=== PATIENT | female | born 1945 | race African-American/Black ===

== ENCOUNTER 2020-08-14 13:53 | Inpatient (IN) | payer OTHER, BC ==
[~2020-08-14] VITALS: Ht 160 cm; Wt 82.6 kg
[2020-08-14] VITALS (14 sets, daily range): BP systolic 140–178; BP diastolic 48–72
[2020-08-14] MEDS ORDERED: CARVEDILOL25 MG PO (15:03)
[2020-08-14] MEDS ORDERED: LOKELMA5 GM PO (15:03)
[2020-08-14] MEDS ORDERED: LASIX 80 MG TAB80 MG PO (15:04)
[2020-08-14] MEDS ORDERED: HYDRALAZINE 2525 M1 PO (15:04)
[2020-08-14] MEDS ORDERED: SODIUM BICARBO650 M3 PO (15:06)
[2020-08-14 15:07] LABS: BASOPHILS 0.3 % (0.0-2.0); EOSINOPHILS 0.4 % (0.0-3.0); MCH 28.7 pg (26.0-34.0); MCHC 32.1 g/dL (28.0-37.0); MCV 89.3 fL (80.0-100.0); PLATELET COUNT 202 thou/uL (150-400); POLYS 82.3 % (36.0-66.0); RDW 17.7 % (10.5-14.5); WBC 7.3 thou/uL (4.0-11.0)
[2020-08-14] MEDS ORDERED: ELIQUIS5 MG PO (15:07)
[2020-08-14] MEDS ORDERED: CALCITRIOL0.25 MCG PO (15:09)
[2020-08-14 15:12] LABS: ANION GAP 16 mmol/L (7-16); BUN 104 mg/dL (7-18); CALCIUM 7.1 mg/dL (8.5-10.1); CHLORIDE 111 mmol/L (98-107); CO2 15 mmol/L (21-32); CREATININE 5.4 mg/dL (0.6-1.0); GLUCOSE 126 mg/dL (74-106); HEMATOCRIT 14.2 % (37.0-47.0); HEMOGLOBIN 4.6 gm/dL (12.0-15.0); SODIUM 142 mmol/L (136-145)
[2020-08-14 15:22] LABS: ALBUMIN 2.9 g/dL (3.4-5.0); SGOT 15 U/L (15-37); SGPT 32 U/L (30-65); TOTAL BILIRUBIN 0.2 mg/dL (0.2-1.0); TOTAL PROTEIN 6.2 g/dL (6.4-8.2); TROPONIN-I <0.06 ng/mL (<0.06)
--- NOTE | 2020-08-14 17:32 | NUR ---
A RIGHT IJ CENTRAL LINE WAS PLACED PER HOSPITAL POLICY AFTER A BEDSIDE TIMEOUT WAS COMPLETED. THE RIGHT JUGULAR WAS WIDLEY PATENT. A #6F TRIPLE LUMEN CENTRAL LINE WAS ADVANCED WITHOUT DIFFICULTY TO 7 CM EXTERNAL. A STAT CHEST XRAY CONFIRMED LINE IN APPROPRIATE POSITION FOR USE
[2020-08-14 18:05] LABS: URINE BILIRUBIN NEGATIVE (Negative); URINE BLOOD TRACE (Negative); URINE CLARITY CLEAR; URINE COLOR YELLOW; URINE GLUCOSE-RANDOM* NEGATIVE (Negative); URINE KETONES NEGATIVE (Negative); URINE LEUKOCYTES-REFLEX NEGATIVE (Negative); URINE NITRITE-REFLEX NEGATIVE (Negative); URINE PROTEIN (DIPSTICK) 2+ (Negative); URINE UROBILINOGEN 0.2 E.U./dl (0.2-1.0)
[2020-08-14 18:14] LABS: FOLIC ACID 6.3 ng/mL (8.6-58.9)
[2020-08-14 18:24] LABS: % SATURATION 19 % (20-39); IRON 51 ug/dL (50-170); TIBC 271 ug/dL (250-450)
--- NOTE | 2020-08-14 22:26 | NUR ---
1904 - PT ARRIVED FROM ER VIA CART. PT TRANSFERED TO ICU BED, CONNECTED TO MONITORS, ASSESSED PER ICU PROTOCOL. PRBC AND PROTONIX INFUSING FROM ER. DAUGHTER (KIKI) AT BEDSIDE. PT A&OX4, VERY PLEASANT BUT DROWSY. NO C/O PAIN OR N/V. 2022 - NEPHROLOGY CONSULTED. DR. BONILLA CALLED BACK. ORDERS OBTAINED TO INSERT MIGUEL CATH FOR ACCURATE I&O'S AND RENAL PANEL ORDERED FOR AM. 2029 - MANAGER TALENT ACQUISITION SENAIT CALLED REGAURDING BP 177/63. NO ORDERED RECEIVED. 2199 - PT SLEEPING. SECOND UNIT OF BLOOD STARTED PER ORDERS. WILL RECHECK H&H 1 HOUR POST INFUSION.
[2020-08-15] VITALS (17 sets, daily range): BP systolic 161–190; BP diastolic 62–87
[2020-08-15 01:40] LABS: HEMOGLOBIN 6.3 gm/dL (12.0-15.0)
[2020-08-15 01:41] LABS: HEMATOCRIT 19.3 % (37.0-47.0)
[2020-08-15 06:11] LABS: ABSOLUTE NEUTROPHILS 7.7 thou/uL (1.4-8.2); BASOPHILS 0.2 % (0.0-2.0); EOSINOPHILS 0.7 % (0.0-3.0); HEMATOCRIT 22.7 % (37.0-47.0); HEMOGLOBIN 7.8 gm/dL (12.0-15.0); LYMPHOCYTES 6.9 % (24.0-44.0); MCH 30.4 pg (26.0-34.0); MCHC 34.2 g/dL (28.0-37.0); MCV 88.8 fL (80.0-100.0); MONOCYTES 5.4 % (1.0-8.0); PLATELET COUNT 183 thou/uL (150-400); POLYS 86.8 % (36.0-66.0); RBC 2.55 mil/uL (4.20-5.00); RDW 15.6 % (10.5-14.5); WBC 8.9 thou/uL (4.0-11.0)
[2020-08-15 06:20] LABS: ALBUMIN 2.6 g/dL (3.4-5.0); CALCIUM 6.8 mg/dL (8.5-10.1); CREATININE 5.2 mg/dL (0.6-1.0); POTASSIUM 4.8 mmol/L (3.5-5.1)
--- NOTE | 2020-08-15 08:18 | EKG ---
[address] [address] ELECTROCARDIOGRAM REPORT Name: RUSS CRYSTAL Room #: 251- ADM IN M.R.#: [id number] Admission: 08/14/20 Attend Phys: Selwyn John MD Discharge: Date of : 47 Report #: [id number] [facility] ED Test Date: 2020-08-14 Test Time: 13:58:06 Pat Name: RUSS CRYSTAL Department: Room: [facility] Gender: F Aoc Aadc Operations Staff Officer: [place] : 1945 Requested By: Selwyn John Order Number: [id number] MD: Kervin Vargas Measurements Intervals [place] Rate: 68 P: -6 MA: 190 QRS: -35 QRSD: 116 T: 62 QT: 427 QTc: 455 Interpretive Statements Sinus rhythm Nonspecific intraventricular conduction delay Compared to ECG 07/28/2005 15:04:50 Left anterior fascicular block no longer present Electronically Signed On 08-15-2020 8:18:02 CDT by Kervin Vargas [email or web address] <ELECTRONICALLY SIGNED> By: Kervin Vargas MD, [facility] 08/15/20 0818 1358 1358 Kervin Vargas MD, [facility] /EPI
--- NOTE | 2020-08-15 09:00 | NUR ---
discussed during am rounds. low hgb had units of blood. gi consulted possible egd. possible moving out of icu today. unable to visit with her rt she up having breakfast. will cont following as needed for dc needs.
--- NOTE | 2020-08-15 11:24 | NUR ---
PT ORIENTED TO ROOM AND UNIT, BED LOW AND LOCKED, SIDE RAILS UPX3, CALL LIGHT IN REACH, TELE APPLIED. WILL CONTINUE TO ASSESS.
--- NOTE | 2020-08-15 12:01 | NUR ---
PT HYPERTENSIVE SYSTOLIC 180'S.DR. LOPEZ AWARE OF PATIENT'S BLOOD PRESSURE.NO ORDERS GIVEN AT 0823 AM. PT AGAIN HYPERTENSIVE TO SYSTOLIC 200'S. NOTIFIED. TOLD THIS RN THAT ORDERS WILL BE PUT IN. PT TRANSFERED TO CCU ROOM 210. REPORT GIVEN TO NAVIN BERG. PT HAD BOWEL MOVEMENT X2 TODAY. STOOL IS BLACK IN COLOR. PT ALERT AND ORIENTED X4. STANDBY ASSIST X1 TO BEDSIDE COMMODE. FAMILY CALLED TO NOTIFFY ABOUT PT TRANSFER BUT NO RESPONSE RECEIVED. MEDICAL RECORDS CALLED TO GET PT RECORDS FROM [facility].NAVIN BERG WAS NOTIFIED THAT THE UNIT SECETARY NEEDS TO CALL [facility] TO GET RECORDS ON THIS PATIENT.
--- NOTE | 2020-08-15 15:33 | NUR ---
PT UP IN CHAIR.
--- NOTE | 2020-08-15 17:10 | NUR ---
PT WILL BE NPO AFTER MIDNIGHT FOR EGD IN AM. PT TOLERATING CLEAR LIQUID WELL. WILL CONTINUE TO ASSESS.
[2020-08-15 20:06] LABS: IgA 43 mg/dL (64-422); IgG 1009 mg/dL (586-1602); IgM 6 mg/dL (26-217)
[2020-08-16] VITALS (8 sets, daily range): BP systolic 164–198; BP diastolic 65–87
--- NOTE | 2020-08-16 03:29 | NUR ---
PT A/OX3,FOLLOWS COMMANDS APPROPRIATELY.PT HYPERTENSIVE THIS SHIFT WITH SBP RANGING FROM 180-220,SCHEDULED HYDRALAZINE GIVEN W/O BP IMPROVEMENT.NATIONAL BUSINESS DIRECTOR NOTIFIED N/OS GIVEN OF LOPRESSOR WITH MINIMAL B/P IMPROVEMENT.PT C/O HEADACHES AND SOA WELL,O2 SAT >98% ON RA.TYLENOL GIVEN TO CONTROL B/P,SOA IMPROVED WITH IMPROVED B/P.NO ACTIVE BLEEDING NOTED.PT KEPT NPO FOR PLANNED EGD TODAY.
[2020-08-16 05:22] LABS: HEMATOCRIT 21.9 % (37.0-47.0); HEMOGLOBIN 7.4 gm/dL (12.0-15.0); MCH 29.9 pg (26.0-34.0); MCHC 33.7 g/dL (28.0-37.0); MCV 88.8 fL (80.0-100.0); RBC 2.47 mil/uL (4.20-5.00); RDW 16.3 % (10.5-14.5); WBC 9.2 thou/uL (4.0-11.0)
[2020-08-16 06:01] LABS: ALBUMIN 2.5 g/dL (3.4-5.0); CALCIUM 7.3 mg/dL (8.5-10.1); CREATININE 5.1 mg/dL (0.6-1.0); PHOSPHORUS 4.2 mg/dL (2.5-4.9); POTASSIUM 4.8 mmol/L (3.5-5.1)
[2020-08-16 14:07] LABS: IFEU COMMENT Note: (())
[2020-08-16 14:07] LABS: GLOBULIN TOTAL 2.4 g/dL (2.2-3.9); M-SPIKE 0.8 g/dL (Not Observed)
--- NOTE | 2020-08-16 15:51 | NUR ---
BPCI letter & preferred provider network list provided to patient, lives in home setting
--- NOTE | 2020-08-16 17:06 | NUR ---
PT CARE ASSUMED AT 0700. ASSESSMENTS CHARTED. MEDICATIONS CHARTED. RIJ 3L PICC. SINUS RHYTHM. BM TODAY. ACHS; CARB CONTROL. EGD; ACTIVE BLEEDING IN DUODENUM, EPINEPHRINE INJECTED THEN CAUTERIZED. BILAT POLYPS ON VOCAL CORDS; DR RECOMMEDED OUTPT REMOVAL. BLOOD THINNERS ON HOLD.
[2020-08-16 20:06] LABS: URINE PROTEIN (MG/DL) 109.6 mg/dL (Not Estab.)
[2020-08-17 03:46] VITALS: BP 194/85
--- NOTE | 2020-08-17 04:18 | NUR ---
PT IS ALERT AND ORIENTED X4. LUNGS ARE CLEAR. FAMILY PRESENT THIS EVENING ASKING QUESTIONS IN REGARDS TO EGD RESULTS. INFORMATION PROVIDED PER NURSING OF QUESTIONS TO FAMILY. PT DOES HAVE HIGH BLOOD PRESURE DESPITE MEDS AND EVEN A DOSE OF LOPRESSOR IV NOTIFIED FROM SIZE STAMPER. WILL CONINUE TO MONTIOR AND ASSESS PER NURSING. PT HAS A SLIGHT HEADACHE. MEDS GIVEN FOR THAT. CALL LIGHT WITHIN REACH IF NEEDED.
[2020-08-17 08:00] VITALS: BP 200/88
[2020-08-17 08:43] LABS: HEMOGLOBIN 6.9 gm/dL (12.0-15.0); WBC 7.1 thou/uL (4.0-11.0)
[2020-08-17 08:45] LABS: HEMATOCRIT 20.6 % (37.0-47.0); MCH 29.6 pg (26.0-34.0); MCHC 33.4 g/dL (28.0-37.0); MCV 88.8 fL (80.0-100.0); RBC 2.32 mil/uL (4.20-5.00); RDW 16.8 % (10.5-14.5)
[2020-08-17 08:56] LABS: ALBUMIN 2.6 g/dL (3.4-5.0); CALCIUM 7.7 mg/dL (8.5-10.1); CREATININE 5.7 mg/dL (0.6-1.0); POTASSIUM 4.9 mmol/L (3.5-5.1)
[2020-08-17 09:00] LABS: APTT 30.3 Seconds (24.5-32.8); INR 1.1; PROTIME 11.9 Seconds (10.5-12.1)
[2020-08-17 12:11] VITALS: BP 160/73
[2020-08-17 16:00] VITALS: BP 174/73
--- NOTE | 2020-08-17 17:44 | NUR ---
VASCULAR ACCESS NURSE ROUNDING- THIS PATEINT IS NO LONGER ON IV MEDS- SUGGEST REMOVAL OF CENTRAL LINE AND PIV PLACEMENT TO AVOID RISK OF A BLOOD STREAM INFECTION
[2020-08-17 19:31] VITALS: BP 154/72
[2020-08-18 03:56] VITALS: BP 152/60
--- NOTE | 2020-08-18 05:19 | NUR ---
PT LYING IN BED. TYLENOL PROVIDING HEADACHE RELIEF. DENIES NAUSEA. RESTING COMFORTABLY. NO NEEDS VOICED. CALL LIGHT WITHIN REACH. FREQUENT OBSERVATION.
[2020-08-18 06:41] LABS: RBC 2.16 mil/uL (4.20-5.00)
[2020-08-18 06:42] LABS: MCH 29.1 pg (26.0-34.0); MCHC 32.5 g/dL (28.0-37.0); MCV 89.7 fL (80.0-100.0); RDW 16.7 % (10.5-14.5); WBC 5.7 thou/uL (4.0-11.0)
[2020-08-18 06:48] LABS: HEMATOCRIT 19.4 % (37.0-47.0); HEMOGLOBIN 6.3 gm/dL (12.0-15.0)
[2020-08-18 06:56] LABS: ALBUMIN 2.4 g/dL (3.4-5.0); CALCIUM 7.5 mg/dL (8.5-10.1); CREATININE 5.8 mg/dL (0.6-1.0); PHOSPHORUS 5.7 mg/dL (2.6-4.7); POTASSIUM 5.1 mmol/L (3.5-5.1)
[2020-08-18 08:00] VITALS: BP 160/61
[2020-08-18 12:00] VITALS: BP 140/66; BP 150/77
[2020-08-18 12:24] VITALS: BP 171/66
--- NOTE | 2020-08-18 12:57 | NUR ---
VASCULAR ACCESS NURSE ROUNDING, SUGGEST PLACEMENT OF A PERIPHERAL IV AND REMOVAL OF CENTRAL LINE TO DECREASE RISK OF A BLOOD STREAM INFECTION
[2020-08-18 16:00] VITALS: BP 145/59
[2020-08-18 20:30] VITALS: BP 146/58
[2020-08-19] VITALS (7 sets, daily range): BP systolic 127–149; BP diastolic 50–61
--- NOTE | 2020-08-19 07:20 | NUR ---
PATIENTS CARES WERE ASSUMED AT SHIFT CHANGE. PATIENT WAS ASSESSED AND MEDS WERE PASSED. PATIENT WAS UP IN THE CHAIR FOR A WHILE TO WATCH TV. PATIENT DID SLEEP APPROX EIGHT HOURS THIS SHIFT. ROUNDS WERE MADE. THE BED IS IN A LOW AND LOCKED POSITION.
[2020-08-19 11:07] LABS: KAPPA FREE LIGHT CHAINS 311.6 mg/L (3.3-19.4); KAPPA/LAMBDA RATIO 11.98 (0.26-1.65)
[2020-08-19 13:20] LABS: HEMATOCRIT 24.3 % (37.0-47.0); HEMOGLOBIN 8.1 gm/dL (12.0-15.0)
[2020-08-19] MEDS ORDERED: NORVASC5 MG PO ×2 (14:00→14:28)
[2020-08-19] MEDS ORDERED: PROTONIX40 M4 PO ×2 (14:00→14:28)
--- NOTE | 2020-08-19 14:09 | NUR ---
CM SPK WITH PT AND HER DTR, KIKI ([phone]). PT LIVES ALONE IN [place] W/ELEVATOR. AND WAS INDEPENDENT WITH ADLS PRIOR TO ADMISSION. PT WILL RTRN HOME WITH HER DTR WITH [facility] PT DRT, KIKI STATED SHE WORKS WITH [employer]. PT HAS WALKER, W/C AND CANE. PT IS SWITCHING FORM ROQUE TO [facility] PROVIDER. KIKI ADDRESS: [address] [place] [phone]. CM PROVIDED THEM WITH A LIST OF PROVIDERS. CM TO ASSIST W/HH NEEDS.
--- NOTE | 2020-08-19 15:04 | P ---
[facility] [address] PROCEDURE REPORT Name: RUSS CRYSTAL Room #: 210-P ADM IN M.R.#: [id number] Admission: 08/14/20 Attend Phys: Selwyn John MD Discharge: Date of : 47 Report #: [id number] THIS REPORT FOR: cc: FAM - Family physician unknown FAM - Family physician unknown Srinivas Hodge MD ~ DOC #: [id number] cc: Selwyn John MD, DO Srinivas Hensley MD DATE OF SERVICE: 08/16/2020 PROCEDURE PERFORMED: Upper endoscopy with bleeding control. HISTORY OF PRESENT ILLNESS: The patient is a 74-year-old female with recent melanotic stools, hemoglobin of 4.6. Last hemoglobin was 7.3. Dr. Matthieu Lin, my partner has been following the patient inpatient and was doing an upper endoscopy on the patient this morning for above symptoms. During the EGD, he noticed bleeding near what appears to be the major papilla in the second portion of the duodenum. He asked for my assistance at this point, the patient was already asleep with propofol. DESCRIPTION OF PROCEDURE: I used an ERCP side-viewing Olympus scope and advanced the scope down the patient's mouth, through the stomach, into the second portion of the duodenum. The major papilla was somewhat full in general and somewhat enlarged, but no obvious mass lesions were seen. There was obvious active bleeding, just to the edge of the bile duct opening. Throughout this time, bile was noted exiting the bile duct. It does not appear that the blood was coming from the bile duct itself. I then proceeded with injecting the area with 1 mL of epinephrine. This slowed the bleeding significantly. At this point, I was able to cauterize the edge of the major papilla and no further bleeding was noted. The scope was then brought out and a regular upper endoscope was then inserted into the stomach. Two gastric nonbleeding AVMs were also noted and cauterized both of these which were 3-4 mm in size with a 7-Icelandic bipolar cautery. No bleeding after cauterization. At this point, the scope was then withdrawn. On withdrawal, however, I did notice a mass lesion on her left both vocal cord. Multiple pictures were obtained. The scope was then withdrawn and the procedure terminated. The patient tolerated the procedure well. IMPRESSION: 1. Active bleeding seen at the major papilla, not from the bile duct, but near the opening. This was treated using a side-viewing scope today with epinephrine injection and cautery. No further bleeding noted after treatment. 2. 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 3. 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 Dr. Roberts from ENT was [address] [address] PROCEDURE REPORT Name: RUSS CRYSTAL Room #: 210-P [facility] IN M.R.#: [id number] Admission: 08/14/20 Attend Phys: Selwyn John MD Discharge: Date of : 47 Report #: [id number] consulted. Thank you for allowing me to participate in her care. Srinivas Hodge MD [facility]/MYLA <ELECTRONICALLY SIGNED> By: Srinivas Hodge MD 08/19/20 1504 [id number] [id number] Srinivas Hodge MD /
--- NOTE | 2020-08-19 17:54 | NUR ---
I DISCUSSED WITH DR. HOWELL AND GI OPERATING SYSTEMS SPECIALIST REGARDING ELIQUIS AT DISCHARGE. PLAN FOR PATIENT TO RESUME ELIQUIS ONE WEEK FROM TODAY (08/26). GI WILL CONTACT PATIENT AFTER DISCHARGE TO SCHEDULE FOLLOW UP APPOINTMENT AND RE-EVALUATE ELIQUIS FURTHER. PATIENT AND DAUGHTER WERE PROIVDED WITH INSTRUCTIONS. BOTH VERBALIZED UNDERSTANDING OF INSTRUCTIONS.
[2020-08-20 12:07] LABS: GLOMERULR BASEM MEMBRN AB 2 units (0-20)
== END 2020-08-19 18:28 | disposition home health service (06) | DRG 377 ==
LOC: ER 13:53 → EROBS 17:17 → ICU 17:17 → 2N 08-15 11:00
PROVIDERS: Emergency Medicine; Hospitalist; Internal Medicine Gastroenterology; Internal Medicine Nephrology; Nurse Practitioner; ADMIT Internal Medicine; ATTEND Internal Medicine
PROC: 30233N1 Transfusion of Nonautologous Red Blood Cells into Peripheral Vein, Percutaneous Approach (ICD-10-PCS; principal; 2020-08-14)
PROC: 0W3P8ZZ Control Bleeding in Gastrointestinal Tract, Via Natural or Artificial Opening Endoscopic (ICD-10-PCS; 2020-08-16)
DX: K31.811 Angiodysplasia of stomach and duodenum with bleeding (principal); N18.6 End stage renal disease; D62 Acute posthemorrhagic anemia; N17.9 Acute kidney failure, unspecified; I12.0 Hypertensive chronic kidney disease with stage 5 chronic kidney disease or end stage renal disease; I48.91 Unspecified atrial fibrillation; E78.5 Hyperlipidemia, unspecified; E86.0 Dehydration; E11.22 Type 2 diabetes mellitus with diabetic chronic kidney disease; E11.21 Type 2 diabetes mellitus with diabetic nephropathy; J38.1 Polyp of vocal cord and larynx; E83.39 Other disorders of phosphorus metabolism; Z20.822 Contact with and (suspected) exposure to COVID-19; Z90.710 Acquired absence of both cervix and uterus; Z79.01 Long term (current) use of anticoagulants; Z90.49 Acquired absence of other specified parts of digestive tract; Z98.891 History of uterine scar from previous surgery; Z79.899 Other long term (current) drug therapy; Z88.5 Allergy status to narcotic agent; Z88.0 Allergy status to penicillin; Z87.891 Personal history of nicotine dependence
CPT/HCPCS: 10078; 10081; 50455; 62110; 62900; 70005; 85076

== ENCOUNTER 2021-03-25 08:57 | Inpatient (IN) | payer OTHER, BC ==
[~2021-03-25] VITALS: Ht 160 cm; Wt 73.0 kg
[~2021-03-25 08:57] MED LIST: CALCITRIOL0.25 MCG PO; CARVEDILOL25 MG PO; ELIQUIS5 MG PO; HYDRALAZINE 2525 M1 PO; LASIX 80 MG TAB80 MG PO; LOKELMA5 GM PO; NORVASC5 MG PO; PROTONIX40 M4 PO; SODIUM BICARBO650 M3 PO
[2021-03-25 09:23] VITALS: BP 180/90
--- NOTE | 2021-03-25 10:54 | EKG ---
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: joan : 1945 Requested By: Omero Walton Order Number: [id number] MD: Renny Chandler Measurements Intervals [place] Rate: 103 P: -54 MO: 135 QRS: -55 QRSD: 110 T: 40 QT: 393 QTc: 515 Interpretive Statements Sinus tachycardia/PAFIB Ventricular premature complex Left anterior fascicular block Abnormal R-wave progression, late transition Compared to ECG 08/14/2020 13:58:06 Ventricular premature complex(es) now present Left anterior fascicular block now present Sinus rhythm no longer present Intraventricular conduction delay no longer present Electronically Signed On 03-25-2021 10:54:22 DOCUMENT CONTROLLER by Renny Chandler [email or web address] <ELECTRONICALLY SIGNED> By: Renny Chandler MD, FACC 03/25/21 1054 0909 0909 Renny Chandler MD, [facility] /EPI
[2021-03-25 11:36] LABS: ABSOLUTE NEUTROPHILS 2.7 thou/uL (1.4-8.2); BASOPHILS 0.5 % (0.0-2.0); EOSINOPHILS 1.5 % (0.0-3.0); HEMATOCRIT 28.5 % (37.0-47.0); HEMOGLOBIN 9.1 gm/dL (12.0-15.0); LYMPHOCYTES 11.9 % (24.0-44.0); MCH 27.2 pg (26.0-34.0); MCHC 32.1 g/dL (28.0-37.0); MCV 84.6 fL (80.0-100.0); MONOCYTES 11.5 % (1.0-8.0); PLATELET COUNT 165 thou/uL (150-400); POLYS 74.6 % (36.0-66.0); RBC 3.37 mil/uL (4.20-5.00); RDW 16.1 % (10.5-14.5); WBC 3.6 thou/uL (4.0-11.0)
[2021-03-25 11:58] LABS: ALBUMIN 3.1 g/dL (3.4-5.0); CREATININE 9.3 mg/dL (0.6-1.0); POTASSIUM 3.9 mmol/L (3.5-5.1); TOTAL BILIRUBIN 0.2 mg/dL (0.2-1.0); TOTAL PROTEIN 7.4 g/dL (6.4-8.2)
[2021-03-25 12:01] LABS: CALCIUM 5.3 mg/dL (8.5-10.1)
[2021-03-25 14:31] LABS: PHOSPHORUS 8.4 mg/dL (2.5-4.9)
[2021-03-25 19:37] VITALS: BP 200/103
[2021-03-26 05:00] VITALS: BP 120/61
[2021-03-26 06:06] LABS: BASOPHILS 0.1 % (0.0-2.0); HEMATOCRIT 25.1 % (37.0-47.0); HEMOGLOBIN 8.1 gm/dL (12.0-15.0); LYMPHOCYTES 11.2 % (24.0-44.0); MCH 27.4 pg (26.0-34.0); MCHC 32.3 g/dL (28.0-37.0); MCV 84.8 fL (80.0-100.0); MONOCYTES 3.7 % (1.0-8.0); PLATELET COUNT 162 thou/uL (150-400); RBC 2.96 mil/uL (4.20-5.00); RDW 16.3 % (10.5-14.5); WBC 3.6 thou/uL (4.0-11.0)
[2021-03-26 06:38] LABS: ALBUMIN 2.7 g/dL (3.4-5.0); CREATININE 9.3 mg/dL (0.6-1.0); MAGNESIUM 1.3 mg/dL (1.8-2.4); PHOSPHORUS 9.2 mg/dL (2.5-4.9)
[2021-03-26 06:40] LABS: CALCIUM 5.7 mg/dL (8.5-10.1)
--- NOTE | 2021-03-26 07:40 | NUR ---
ASSUME CARE 1900. PT/VITALS STABLE. DENIES ANY PAIN. MODERATE TOLERANCE TO ACTIVITY. A/O X 4. ROOM AIR WITH ADEQUATE SATS. MILD SOB WITH EXERTION. ASSESSMENT CHARTED. PROGRESSING WELL WITH POC. PLAN IS TO CONTINUE TO MONITOR AND MANAGE KIDNEY AND RESP FUNCTION. WILL CONTINUE TO FOLLOW WITH POC
[2021-03-26 09:30] LABS: INR 1.1; PROTIME 11.9 Seconds (10.5-12.1)
[2021-03-26 13:03] VITALS: BP 122/55
[2021-03-26 16:25] VITALS: BP 89/37
--- NOTE | 2021-03-26 16:40 | NUR ---
PT ADMITTED REALTED TO COVID +, ACUTE ON CHRONIC RENAL FAILURE. CM REVIEWED CHART AND SPOKE WITH CARE TEAM. CM CALLED PT'S ROOM MULTIPAL TIMES THIS DAY WITH NO RESPONSE. CM CALLED PT'S DTR KIKI . 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 SHE INDICATED THAT PT HAS A CANE AND A 4WW FOR HOME USE. SHE INDICATED THAT PT HAD BATHED HERSELF BUT THAT SHE NEEDED ASSIST WITH CLEANING AND IADLS. DTR INDICATED THAT HER SISTER AND NIECE HAD OFTEN ASSISTED PT. CM INDICATED THAT PT HAVING A TUNNELED DIALYSIS CATHETER PLACE AND WOULD BE INITIATED ON HD HERE TOMORROW. CM INDICATED THAT CARE TEAM HAD INDICATED THAT PT WOULD NEED TO BE ESTABLISHED WITH OP HD IN THE COMMUNITY. DTR KIKI INDICATED THAT PLAN UPON DC THIS TIME WOULD BE FOR PT TO GOT TO HER HOME PERMANTLY. SHE RESIDES AT [address] [place] [address]. SHE INDICATED THAT HER FATHER HAD GONE TO [facility] AND SHE WAS INTERESTED IN SEEING IF HER MOTHER COULD BE ESTABLISHED THERE. CM TO FAX INFO TO [facility] TO SEE IF THEY MIGHT BE ABLE TO ACCEPT. DTR INDICTED SHE MIGHT PREFER MWF EARLY SHIFT CHIAR TIME. CM FOLLOWING REGARDING DC PLANNING NEEDS.
--- NOTE | 2021-03-26 17:59 | NUR ---
PATIENT SLOWLY PROGRESSING TOWARDS THE PLAN OF CARE. DR. OLIVARES NOTIFIED OF PATIENT'S DROP IN BP. ORDERS RECEIVED AND IMPLEMENTED.
[2021-03-26 18:53] VITALS: BP 116/43
--- NOTE | 2021-03-26 20:54 | HC ---
[facility] [place] [address] CONSULTATION Name: RUSS CRYSTAL Room #: 450-P ADM IN M.R.#: [id number] Admission: 03/25/21 Attend Phys: Jaylene Estrada MD Discharge: Date of : 47 Report #: [id number] THIS REPORT FOR: cc: FAM - Family physician unknown FAM - Family physician unknown Vinay Rosas MD ~ DATE OF SERVICE: 03/25/2021 INFECTIOUS DISEASE CONSULTATION REASON FOR CONSULTATION: I was asked to evaluate concerning COVID-19 infection. HISTORY OF PRESENT ILLNESS: The patient is a 75-year-old, underlying history of hypertension, end-stage renal disease and atrial fibrillation, unvaccinated for COVID-19, presents with a 2-day history of nausea, vomiting, diarrhea, mild headache, anorexia, myalgias without fever, chills or sweats, loss of taste or smell. Also, with generalized weakness. No cough or sputum production. No chest pain or palpitations. No hemoptysis. No PND or orthopnea. She presented to the Emergency Room with a negative chest x-ray, COVID-19 positive, leukopenia. She has remained on room air with O2 saturation 99%. REVIEW OF SYSTEMS: 14-point was negative other than what has been described above. ALLERGIES: CODEINE, PENICILLIN. MEDICATIONS: As noted on her MAR. PAST MEDICAL HISTORY: Hypertension, back surgery, diabetes, laminectomy, cholecystectomy, hysterectomy, herniorrhaphy, , hypertension, end-stage renal disease, atrial fibrillation, GI bleed. FAMILY HISTORY: Negative for tuberculosis. SOCIAL HISTORY: Smoker of cigarettes. Past alcohol use. Lives alone, although was visiting her grandchildren before she got sick. PHYSICAL EXAMINATION: GENERAL: She was afebrile and hemodynamically stable. She was alert and cooperative and pleasant. No acute distress. SKIN: Without rash or decubitus. No palpable adenopathy. Mild obesity. HEENT: Eyes without scleral icterus. Mouth without mucositis. NECK: Supple. LUNGS: Clear. HEART: Regular, without murmur, gallop or rub. ABDOMEN: Soft, mild tenderness in the epigastric region. No hepatosplenomegaly [facility] [address] [place] [address] CONSULTATION Name: RUSS CRYSTAL Room #: 450-[facility] IN .R.#: [id number] Admission: 03/25/21 Attend Phys: Jaylene Estrada MD Discharge: Date of : 47 Report #: [id number] or mass. No CVA tenderness. GENITORECTAL: Examination not performed. EXTREMITIES: Without clubbing, cyanosis or edema. NEUROLOGIC: Cranial nerves intact. Strength in the upper or lower extremities was symmetric. PSYCHIATRIC: Mood without anxiety. LABORATORY DATA: Reviewed. MICROBIOLOGY: Reviewed. IMAGING: Chest x-ray reviewed. IMPRESSION: COVID-19 infection with gastroenteritis as her main presentation. Thus far, no evidence of pneumonia. She has end-stage renal disease, underlying hypertension, coronary artery disease and atrial fibrillation. Leukopenia, suspect related to her COVID-19 infection. Blood pressure is yet to be controlled. RECOMMENDATION: We will continue antiviral therapy with remdesivir. Home corticosteroids at this point. Control hypertension. Continue dialysis program as the patient will be on remdesivir. Follow serial laboratory studies including liver function tests. Follow up on COVID isolation unit. <ELECTRONICALLY SIGNED> By: Vinay Rosas MD 03/26/212053 13 [id number] Vinay Rosas MD /nt
[2021-03-27 04:06] LABS: GLYCOHEMOGLOBIN (HGB A1C) 5.6 % (4.8-5.6)
[2021-03-27 05:12] VITALS: BP 142/67
[2021-03-27 06:17] LABS: ALBUMIN 2.7 g/dL (3.4-5.0); ANION GAP 18 mmol/L (7-16); BUN 81 mg/dL (7-18); CHLORIDE 102 mmol/L (98-107); CO2 15 mmol/L (21-32); CREATININE 9.4 mg/dL (0.6-1.0); DIRECT BILIRUBIN < 0.1 mg/dL (<0.1-0.2); GLUCOSE 91 mg/dL (74-106); PHOSPHORUS 8.3 mg/dL (2.6-4.7); POTASSIUM 3.3 mmol/L (3.5-5.1); SGOT 20 U/L (15-37); SGPT 10 U/L (14-59); SODIUM 135 mmol/L (136-145); TOTAL BILIRUBIN 0.3 mg/dL (0.2-1.0); TOTAL PROTEIN 5.9 g/dL (6.4-8.2)
[2021-03-27 06:22] LABS: CALCIUM 5.4 mg/dL (8.5-10.1)
[2021-03-27 07:40] VITALS: BP 154/86
[2021-03-27 08:00] VITALS: BP 164/86
[2021-03-27 12:11] VITALS: BP 142/95
--- NOTE | 2021-03-27 14:42 | NUR ---
PT INITIATED ON FIRST TREAT OF HD THIS DAY. CM REACHED OUT TO ADMISSIONS AT [facility] AND THEY HAD GOTTEN DEMPGRAPHIC AND INITIALL CLINICAL CM HAD FAXED YESTERDAY. KAREN INDICATED IT WAS BEING REVIEW. SHE INDICATED THAT THEY WERE WANTING FOR A MEDICARE PART B APPLICATION TO BE INITIATED PT NOW HAD PART A ONLY AND A BLUE CROSS OUT OF AREA SECONDARY. CM WAS INFORMED THAT PT WOULD NEED TO SIGN UP FOR MEDICATE PART B. CM ATTEMPTED PC TO PT'S ROOM WITH NO ANSWER. CM CALLED AND EXPLAINED THAT ABOVE TO PT'S DTR KIKI. KIKI INDICATED SHE WOULD COME AND GET THE FORMS THIS DAY. CM LEFT THEM WITH SECURITY. KAREN INDICATED PT WOULD BE STARTED ON THEIR COVID SHIFT INITIALLY T,R,S SECOND SHIFT. CM NOTIFIED PT'S DTR OF THIS. PT ND OT ORDERED. CM FOLLOWING REGARDING DC PLANNING.
[2021-03-27 17:02] VITALS: BP 164/86
[2021-03-27 21:00] VITALS: BP 142/63
[2021-03-28 03:52] LABS: ALBUMIN 2.4 g/dL (3.4-5.0); ANION GAP 11 mmol/L (7-16); BUN 44 mg/dL (7-18); CHLORIDE 101 mmol/L (98-107); CO2 25 mmol/L (21-32); DIRECT BILIRUBIN < 0.1 mg/dL (<0.1-0.2); GLUCOSE 76 mg/dL (74-106); PHOSPHORUS 4.5 mg/dL (2.5-4.9); SGOT 19 U/L (15-37); SGPT 14 U/L (30-65); SODIUM 137 mmol/L (136-145); TOTAL BILIRUBIN 0.1 mg/dL (0.2-1.0); TOTAL PROTEIN 5.1 g/dL (6.4-8.2)
[2021-03-28 04:11] LABS: CREATININE 6.4 mg/dL (0.6-1.0)
[2021-03-28 04:12] LABS: CALCIUM 5.6 mg/dL (8.5-10.1)
--- NOTE | 2021-03-28 04:44 | NUR ---
ASSUMED CARE AT 1930 OF 03/27. PATIENT IS RECEIVED SLEEPING IN BED. A&OX4. VITAL SIGNS REMAIN STABLE, DENIES PAIN OR SHORTNESS OF BREATH. CRITICAL LAB VALUE OF CALCIUM BEIGN 5.6 RECEIVED THIS MORNING. AUCTION BLOCK CLERK PROVIDER HAS BEEN NOTIFED AND NO NEW ORDERS RECEIVED. ON COMING SHIFT WILL BE NOTIFIED. FALL PRECAUTIONS IN PLACE, CALL LIGHT WITHIN REACH. WILL CONTINUE TO MONITOR.
[2021-03-28 07:13] VITALS: BP 163/74
[2021-03-28 21:45] VITALS: BP 197/87
[2021-03-29 06:14] LABS: HEMATOCRIT 25.8 % (37.0-47.0); HEMOGLOBIN 8.3 gm/dL (12.0-15.0); MCHC 32.1 g/dL (28.0-37.0); MCV 84.3 fL (80.0-100.0); PLATELET COUNT 128 thou/uL (150-400); RBC 3.06 mil/uL (4.20-5.00); RDW 16.1 % (10.5-14.5); WBC 2.4 thou/uL (4.0-11.0)
[2021-03-29 06:49] LABS: ALBUMIN 2.4 g/dL (3.4-5.0); ANION GAP 12 mmol/L (7-16); BUN 26 mg/dL (7-18); CALCIUM 6.3 mg/dL (8.5-10.1); CHLORIDE 99 mmol/L (98-107); CO2 25 mmol/L (21-32); DIRECT BILIRUBIN < 0.1 mg/dL (<0.1-0.2); GLUCOSE 65 mg/dL (74-106); PHOSPHORUS 3.8 mg/dL (2.5-4.9); POTASSIUM 3.2 mmol/L (3.5-5.1); SGOT 22 U/L (15-37); SGPT 13 U/L (30-65); SODIUM 136 mmol/L (136-145); TOTAL BILIRUBIN 0.2 mg/dL (0.2-1.0); TOTAL PROTEIN 5.7 g/dL (6.4-8.2)
[2021-03-29 06:50] LABS: CREATININE 4.9 mg/dL (0.6-1.0)
[2021-03-29 07:27] VITALS: BP 157/82
[2021-03-29 11:27] LABS: ABSOLUTE NEUTROPHILS 1.6 thou/uL (1.4-8.2)
[2021-03-29 11:28] LABS: ANISOCYTOSIS 1+; POIKILOCYTOSIS SLIGHT
[2021-03-29 12:45] VITALS: BP 147/66
[2021-03-29 16:17] VITALS: BP 155/69
[2021-03-29 19:51] VITALS: BP 178/85
[2021-03-30 04:26] VITALS: BP 169/81
--- NOTE | 2021-03-30 04:26 | NUR ---
I AGREE WITH NURSE HURLEY ON THE ASSESSMENT OF THIS PT.
[2021-03-30 06:14] LABS: ABSOLUTE NEUTROPHILS 1.9 thou/uL (1.4-8.2); BASOPHILS 0.4 % (0.0-2.0); EOSINOPHILS 1.5 % (0.0-3.0); HEMATOCRIT 23.7 % (37.0-47.0); HEMOGLOBIN 7.7 gm/dL (12.0-15.0); LYMPHOCYTES 19.6 % (24.0-44.0); MCH 27.2 pg (26.0-34.0); MCHC 32.4 g/dL (28.0-37.0); MCV 83.9 fL (80.0-100.0); MONOCYTES 10.4 % (1.0-8.0); PLATELET COUNT 121 thou/uL (150-400); POLYS 68.1 % (36.0-66.0); RBC 2.83 mil/uL (4.20-5.00); RDW 15.7 % (10.5-14.5); WBC 2.8 thou/uL (4.0-11.0)
[2021-03-30 06:43] LABS: ALBUMIN 2.4 g/dL (3.4-5.0); PHOSPHORUS 4.2 mg/dL (2.5-4.9); POTASSIUM 3.1 mmol/L (3.5-5.1)
[2021-03-30 06:48] LABS: CREATININE 6.3 mg/dL (0.6-1.0)
[2021-03-30 06:50] LABS: CALCIUM 5.8 mg/dL (8.5-10.1)
[2021-03-30 14:27] VITALS: BP 169/81
[2021-03-30 17:06] VITALS: BP 175/93
--- NOTE | 2021-03-30 18:26 | NUR ---
Patient had no pain, axo x 4 walk to the bathroom to urinate 2 times. appetite is poor, but report start to get it back. call light within reach, will continous monitoring.
[2021-03-30 19:30] VITALS: BP 171/86
--- NOTE | 2021-03-31 03:56 | NUR ---
ASSUMED CARE OF PT AT 1900 BEDSIDE REPORT RECIEVED AND KOMAL ASSESSMENT COMPLETE. MEDS GIVEN PER MAY. PT DENIES ANY PAIN, REPORTS EXHAUSTION. R CHEST HD CATH CDI. REFILLED ICE WATER. UP X1 TO BATHROOM. HOURLY ROUNDING CONTINUING. CALL LIGHT IN REACH
[2021-03-31 05:00] VITALS: BP 180/75
[2021-03-31 06:52] LABS: ABSOLUTE NEUTROPHILS 2.3 thou/uL (1.4-8.2); BASOPHILS 0.4 % (0.0-2.0); HEMATOCRIT 23.5 % (37.0-47.0); HEMOGLOBIN 7.6 gm/dL (12.0-15.0); LYMPHOCYTES 16.3 % (24.0-44.0); MCH 26.8 pg (26.0-34.0); MCHC 32.4 g/dL (28.0-37.0); MCV 82.6 fL (80.0-100.0); MONOCYTES 8.6 % (1.0-8.0); PLATELET COUNT 136 thou/uL (150-400); POLYS 72.7 % (36.0-66.0); RBC 2.85 mil/uL (4.20-5.00); RDW 15.1 % (10.5-14.5); WBC 3.2 thou/uL (4.0-11.0)
[2021-03-31 07:07] LABS: ALBUMIN 2.4 g/dL (3.4-5.0); CREATININE 7.2 mg/dL (0.6-1.0); POTASSIUM 3.3 mmol/L (3.5-5.1)
[2021-03-31 07:10] LABS: CALCIUM 5.5 mg/dL (8.5-10.1)
[2021-03-31 07:24] VITALS: BP 172/98
--- NOTE | 2021-03-31 07:27 | NUR ---
CRITICAL RESULTS CALLED TO @3765 OF CALCIUM LEVELS;
[2021-03-31 11:37] VITALS: BP 181/105
[2021-03-31 13:23] VITALS: BP 181/105
--- NOTE | 2021-03-31 15:24 | NUR ---
CM FAXED FLOW SHEETS TO KAREN IN INTAKE AT [facility]. CM CONVEYED TO HOSPITALIST AND TO PT'S NURSE CHUNG THIS DAY THAT PT'S HEP PANEL (NEED TO ESTABLISH WITH OP HD UPON DC) IS STILL SHOWING PENDING IN THE COMPUTER. NURSE TO TAKE MEDICARE PART B APPLICATION THAT PT'S DTR RETURNED IN FOR PT TO SIGN. CM INDICATED THAT [facility] THAT THEY HAVE APPLICATION AND THAT IT WILL BE SUBMITTED. CM FOLLOWING REGARDING DC PLANNING.
[2021-03-31 15:42] VITALS: BP 178/92
--- NOTE | 2021-03-31 17:43 | NUR ---
RESUMMED CARE; PATIENT WAS IN BED WITH DIALYSIS GOING THIS MORNING; PATIENT HAD 1LI LIFTED; A&O*4; DENIED PAIN-N/V/D; HAS IV IN THE RIGHT HAND-S.L; RIGHT CHEST HD CATH IN PLACE FOR DIALYSIS-D/C/I; PATIENT ON TELLY RUNNING SA; HYPERTENSIVE THROUGHOUT THE DAY, PATIENT STATES "THATS NORMAL." MEDICATIONS GIVEN PER MAR; FALL PRECAUTIONS & ENHANCED PRECAUTIONS ARE IN PLACE; UP WITH STANDBY ASSIST TO AND FROM RESTROOM; NO BOWEL MOVEMENT NOTED TODAY, PATIENT HAS URINATED *3 POST DIALYSIS;
[2021-03-31 19:51] VITALS: BP 182/103
--- NOTE | 2021-04-01 03:37 | NUR ---
ASSUMED CARE OF PT AT 1914. REPORT RECIEVED. KOMAL ASSESSMENT COMPLETE. PT DENIES ANY PAIN AT THIS TIME. NOTIFIED SHASHANK COMMUNITY ENGAGEMENT REPRESENTATIVE OF INCREASED BP, NO NEW ORDERS AT THIS TIME. PT REPORTS EXHASTION. MEDS GIVEN PER MAY,. NO INSLIN REQUIRED PER ORDER. HOURLY ROUNDING CONTINUING. CALL LIGHT IN REACH
[2021-04-01 04:10] VITALS: BP 184/101
[2021-04-01 06:02] LABS: ABSOLUTE NEUTROPHILS 2.6 thou/uL (1.4-8.2); BASOPHILS 0.5 % (0.0-2.0); EOSINOPHILS 1.4 % (0.0-3.0); HEMOGLOBIN 8.8 gm/dL (12.0-15.0); LYMPHOCYTES 15.8 % (24.0-44.0); MCH 27.4 pg (26.0-34.0); MCHC 32.5 g/dL (28.0-37.0); MCV 84.4 fL (80.0-100.0); MONOCYTES 7.5 % (1.0-8.0); PLATELET COUNT 165 thou/uL (150-400); POLYS 74.8 % (36.0-66.0); RDW 15.4 % (10.5-14.5); WBC 3.4 thou/uL (4.0-11.0)
[2021-04-01 06:25] LABS: ALBUMIN 2.5 g/dL (3.4-5.0); CALCIUM 7.1 mg/dL (8.5-10.1); CREATININE 4.2 mg/dL (0.6-1.0); PHOSPHORUS 2.7 mg/dL (2.5-4.9); POTASSIUM 3.6 mmol/L (3.5-5.1)
--- NOTE | 2021-04-01 09:44 | NUR ---
SPOKE WITH DAUGHTER THIS MORING. SHE IS CONCERED WITH NOT HAVING TALKED WITH DOCTORS ABOUT MOTHERS CARE AND PLAN OF DISCHARGE. SHE IS ALSO WANTING TO KNOW WHEN SHE WILL BE ALLOWED TO VISIT. PATIETN RESTING COMFORTABLY IN BED NO COMPLAINTS. PATIENTS BLOOD PRESSURE WAS ELEVATED, BUT NO SYMPTOMS. WILL CONTINUE TO MONITOR.
--- NOTE | 2021-04-01 10:21 | NUR ---
REFER TO OT VARIANCE. NO OT NEEDED.
[2021-04-01 12:00] VITALS: BP 150/60; BP 155/74
--- NOTE | 2021-04-01 16:31 | NUR ---
HEP PANEL STILL SHOWS PENDING. CM CALLED AND PROVIDED PT'S DTR KIKI WITH UPDATE THAT MOST UNFORTUNATLY IT APPEARES THAT WE ARE AWAITING LABS NEEDED TO ESTABLISH PT WITH HER OP HD AT [facility]. CM INDICATED THAT ONCE WE HAD THOSE THEY WOULD BE SENT AND CM WOULD FOLLOW BACK UP WITH PT'S ANTICIPATED CHAIR TIME. PLAN IS STILL FOR PT TO DC TO KIKI'S HOUSE WITH [facility] AND OP HD AT [facility]. CM FOLLOWING.
[2021-04-01 17:00] VITALS: BP 150/61; BP 163/82
[2021-04-01 19:30] VITALS: BP 186/85
[2021-04-01 23:27] VITALS: BP 156/56
[2021-04-02 04:00] VITALS: BP 153/64
--- NOTE | 2021-04-02 04:50 | NUR ---
NO ACUTE EVENTS THIS SHIFT. PT HYPERTENSIVE AT START OF SHIFT, SELF RESOLVED. PT DENIES PAIN, REMAINS UAL IN THE ROOM. VVS
[2021-04-02 07:08] LABS: HEP B SURFACE Ab(ANTI-HBS Non Reactive (()); HEPATITIS B SURFACE AG Negative (Negative)
[2021-04-02 08:56] VITALS: BP 165/95
[2021-04-02] MEDS ORDERED: RENVELA800 MG PO (16:19)
[2021-04-02 16:27] VITALS: BP 155/69
--- NOTE | 2021-04-02 16:37 | NUR ---
PT'S HEP PANEL RESULTED THIS DAY. CM FAXED LABS TO KAREN IN ADMISSIONS AT [facility]. SHE INDICATED THAT AFTERNOON THAT PT'S OP HD CHAIR TIME WILL BE M,W,F 6:15. CM NOTIFIED PT AND DTR KIKI. THEY ARE BOTH AWARE AND AGREEABLE. CM TO FAX ORDERS TO [facility] AND ORDERS FLOW SHEETS FROM TODAY TO [facility]. PT'S DTR KIKI TO PROVIDE TRNASPORT HOME THIS EVENING VIA PERSONAL VEHICLE. NO OTHER CM INTERVENTION INDICATED. CASE CLOSED.
[2021-04-02 17:06] VITALS: BP 179/81
--- NOTE | 2021-04-02 18:00 | NUR ---
PATIENT UP AD BONNIE IN ROOM. NOTIFIED THAT SHE WILL BE DISCHARGED HOME TODAY. IV D/C WITH NO ISSUES OR COMPLAINTS. EDUCATED ON NEXT APPOINTMENT FOR DIALYSIS WHICH IS WEDNESDAY. PATIENT WILL NOTIFY RN IF DAUGHTER ARRIVES AND DOESN'T CALL NURSES STATION FIRST.
== END 2021-04-02 18:28 | disposition home health service (06) | DRG 177 ==
LOC: ER 08:57 → EROBS 14:10 → 4W 14:10
PROVIDERS: Emergency Medicine; Internal Medicine Nephrology; Nurse Practitioner; Radiology Vascular & Interventional Radiology; Specialist; ADMIT Hospitalist; ATTEND Hospitalist
PROC: XW033E5 Introduction of Remdesivir Anti-infective into Peripheral Vein, Percutaneous Approach, New Technology Group 5 (ICD-10-PCS; principal; 2021-03-25)
PROC: 5A1D70Z Performance of Urinary Filtration, Intermittent, Less than 6 Hours Per Day (ICD-10-PCS; 2021-03-26)
PROC: 0JH63XZ Insertion of Tunneled Vascular Access Device into Chest Subcutaneous Tissue and Fascia, Percutaneous Approach (ICD-10-PCS; 2021-03-26)
PROC: B5181ZA Fluoroscopy of Superior Vena Cava using Low Osmolar Contrast, Guidance (ICD-10-PCS; 2021-03-26)
PROC: B548ZZA Ultrasonography of Superior Vena Cava, Guidance (ICD-10-PCS; 2021-03-26)
PROC: 02HV33Z Insertion of Infusion Device into Superior Vena Cava, Percutaneous Approach (ICD-10-PCS; 2021-03-26)
PROC: 5A1D70Z Performance of Urinary Filtration, Intermittent, Less than 6 Hours Per Day (ICD-10-PCS; 2021-03-28)
PROC: 5A1D70Z Performance of Urinary Filtration, Intermittent, Less than 6 Hours Per Day (ICD-10-PCS; 2021-03-31)
PROC: 5A1D70Z Performance of Urinary Filtration, Intermittent, Less than 6 Hours Per Day (ICD-10-PCS; 2021-04-02)
DX: U07.1 COVID-19 (principal); N18.6 End stage renal disease; R65.11 Systemic inflammatory response syndrome (SIRS) of non-infectious origin with acute organ dysfunction; J96.01 Acute respiratory failure with hypoxia; J12.82 Pneumonia due to coronavirus disease 2019; D61.818 Other pancytopenia; E46 Unspecified protein-calorie malnutrition; I48.20 Chronic atrial fibrillation, unspecified; I12.0 Hypertensive chronic kidney disease with stage 5 chronic kidney disease or end stage renal disease; N17.9 Acute kidney failure, unspecified; K52.9 Noninfective gastroenteritis and colitis, unspecified; E83.51 Hypocalcemia; F17.210 Nicotine dependence, cigarettes, uncomplicated; I16.0 Hypertensive urgency; D72.819 Decreased white blood cell count, unspecified; E83.39 Other disorders of phosphorus metabolism; D64.9 Anemia, unspecified; E11.22 Type 2 diabetes mellitus with diabetic chronic kidney disease; Z68.28 Body mass index [BMI] 28.0-28.9, adult; Z99.2 Dependence on renal dialysis; Z90.710 Acquired absence of both cervix and uterus; Z88.6 Allergy status to analgesic agent; Z88.0 Allergy status to penicillin; Z91.14 Patient's other noncompliance with medication regimen; Z79.899 Other long term (current) drug therapy
CPT/HCPCS: 10045; 32100

== ENCOUNTER 2021-04-28 02:51 | Emergency (ER) | payer OTHER, BC ==
[~2021-04-28] VITALS: Ht 160 cm; Wt 74.8 kg
[~2021-04-28 02:51] MED LIST changes: +RENVELA800 MG PO
[2021-04-28] MEDS ORDERED: ACETAMINOPHEN PO (03:06)
[2021-04-28 03:55] LABS: ABSOLUTE NEUTROPHILS 4.5 thou/uL (1.4-8.2); BASOPHILS 0.9 % (0.0-2.0); EOSINOPHILS 1.3 % (0.0-3.0); HEMATOCRIT 25.7 % (37.0-47.0); HEMOGLOBIN 8.3 gm/dL (12.0-15.0); LYMPHOCYTES 16.2 % (24.0-44.0); MCH 27.9 pg (26.0-34.0); MCHC 32.3 g/dL (28.0-37.0); MCV 86.3 fL (80.0-100.0); MONOCYTES 6.1 % (1.0-8.0); PLATELET COUNT 202 thou/uL (150-400); POLYS 75.5 % (36.0-66.0); RBC 2.97 mil/uL (4.20-5.00); RDW 17.3 % (10.5-14.5)
[2021-04-28 04:01] LABS: CALCIUM 7.1 mg/dL (8.5-10.1); CREATININE 6.8 mg/dL (0.6-1.0); POTASSIUM 4.1 mmol/L (3.5-5.1)
[2021-04-28 04:11] LABS: ALBUMIN 3.3 g/dL (3.4-5.0); TOTAL BILIRUBIN 0.3 mg/dL (0.2-1.0); TOTAL PROTEIN 6.4 g/dL (6.4-8.2)
[2021-04-28 05:58] VITALS: BP 138/68
--- NOTE | 2021-04-28 08:10 | EKG ---
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: [place] : 1945 Requested By: Mahad Saravia Order Number: [id number] MD: Renny Chandler Measurements Intervals [place] Rate: 66 P: 36 AR: 182 QRS: -42 QRSD: 119 T: 59 QT: 448 QTc: 470 Interpretive Statements Sinus rhythm Nonspecific IVCD with LAD Anteroseptal infarct, age indeterminate Compared to ECG 03/25/2021 09:09:00 Intraventricular conduction delay now present Myocardial infarct finding now present Sinus tachycardia no longer present Ventricular premature complex(es) no longer present Left anterior fascicular block no longer present Electronically Signed On 04-28-2021 8:10:37 SUPERVISOR CUSTOMER RECORDS DIVISION by Renny Chandler [email or web address] <ELECTRONICALLY SIGNED> By: Renny Chandler MD, FAC 04/28/21 0810 8 8 Renny Chandler MD, [facility] /EPI
== END 2021-04-28 05:59 | disposition home or self-care (01) ==
LOC: ER 02:51
PROVIDERS: Emergency Medicine
DX: M25.512 Pain in left shoulder (principal); M54.2 Cervicalgia; I10 Essential (primary) hypertension; E11.9 Type 2 diabetes mellitus without complications; Z98.890 Other specified postprocedural states; Z90.710 Acquired absence of both cervix and uterus; Z90.11 Acquired absence of right breast and nipple; Z79.899 Other long term (current) drug therapy; Z88.5 Allergy status to narcotic agent; Z88.0 Allergy status to penicillin